=== PATIENT | male | born 1995 | race African-American/Black ===

== ENCOUNTER 2018-11-22 10:42 | Emergency (ER) | payer OTHER ==
[~2018-11-22] VITALS: Ht 180.3 cm; Wt 59.0 kg
[2018-11-22 10:50] VITALS: BP 140/63
[2018-11-22] MEDS ORDERED: CEFTRIAXONE 500 MG VIAL ONE (11:15)
[2018-11-22] MEDS ORDERED: LIDOCAINE /MPF 1% VIAL 5 ML VIAL ONE (11:16)
[2018-11-22] MEDS ORDERED: AZITHROMYCIN 250 MG TABLET ONE (11:16)
[2018-11-22] MEDS ORDERED: CEFTRIAXONE 1 G VIAL IM ONE (11:30)
[2018-11-22] MEDS ORDERED: AZITHROMYCIN 250 MG TABLET PO ONE (11:30)
--- NOTE | 2018-11-22 11:35 | NUR ---
Patient discharged to home in stable condition. Written and verbal after care instructions given. Patient verbalizes understanding of instruction.
== END 2018-11-22 11:39 | disposition home or self-care (01) ==
LOC: ER 10:44
DX: N34.2 Other urethritis (principal)
CPT/HCPCS: 87491; 87591; 96372; 99283; A4606; J0696; J3490; Z7610

== ENCOUNTER 2019-12-29 16:18 | Emergency (ER) | payer OTHER ==
[~2019-12-29] VITALS: Ht 180.3 cm; Wt 61.7 kg
[2019-12-29 16:27] VITALS: BP 120/97
== END 2019-12-29 17:04 | disposition home or self-care (01) ==
LOC: ER 16:18
DX: R50.9 Fever, unspecified (principal); R05 Cough; M79.10 Myalgia, unspecified site; F17.200 Nicotine dependence, unspecified, uncomplicated

== ENCOUNTER 2020-07-07 13:44 | Emergency (ER) | payer OTHER ==
[~2020-07-07] VITALS: Ht 180.3 cm; Wt 61.2 kg
[2020-07-07 13:54] VITALS: BP 130/73
[2020-07-07] MEDS ORDERED: oxyCODONE/APAP (5/325 MG) 1 UDTAB TABLET ONE (14:36)
[2020-07-07] MEDS ORDERED: IBUPROFEN 600 MG TABLET PO ONE (14:36)
[2020-07-07] MEDS: IBUPROFEN 600 MG TABLET PO ONE (14:49)
[2020-07-07] MEDS: oxyCODONE/APAP (5/325 MG) 1 UDTAB TABLET PO ONE (14:50)
== END 2020-07-07 15:16 | disposition home or self-care (01) ==
LOC: ER 13:47
DX: S93.501A Unspecified sprain of right great toe, initial encounter (principal); X58.XXXA Exposure to other specified factors, initial encounter; Y93.89 Activity, other specified; Y92.89 Other specified places as the place of occurrence of the external cause; Y99.0 Civilian activity done for income or pay
CPT/HCPCS: 73660-TC

== ENCOUNTER 2020-12-23 02:11 | Emergency (ER) | payer OTHER ==
[~2020-12-23] VITALS: Ht 180.3 cm; Wt 61.2 kg
[2020-12-23 02:35] VITALS: BP 155/77
[2020-12-23] MEDS ORDERED: DOXY100C2 PO (02:52)
[2020-12-23] MEDS ORDERED: CEFTRIAXONE 500 MG VIAL IM ONE (03:00)
[2020-12-23] MEDS ORDERED: DOXYCYCLINE HYCLATE (100 MG) 100 MG TABLET PO ONE (03:00)
[2020-12-23] MEDS ORDERED: CEFTRIAXONE 500 MG VIAL ONE (03:15)
[2020-12-23] MEDS ORDERED: DOXYCYCLINE HYCLATE (100 MG) 100 MG TABLET ONE (03:15)
== END 2020-12-23 04:07 | disposition home or self-care (01) ==
LOC: ER 02:14
DX: N34.2 Other urethritis (principal); F17.200 Nicotine dependence, unspecified, uncomplicated; Z79.899 Other long term (current) drug therapy
CPT/HCPCS: 96372; 99283; J0696

== ENCOUNTER 2022-04-30 11:49 | Emergency (ER) | payer MEDICAID, OTHER ==
[~2022-04-30] VITALS: Ht 180.3 cm; Wt 65.8 kg
[~2022-04-30 11:49] MED LIST: DOXY100C2 PO
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
[2022-04-30] MEDS ORDERED: DOXY100C2 PO (13:15)
[2022-04-30] MEDS ORDERED: CEFTRIAXONE 1 G VIAL ONE (13:23)
[2022-04-30] MEDS ORDERED: LIDOCAINE 1% INJ 50 ML MDV IJ ONE (13:24)
--- NOTE | 2022-04-30 13:30 | NUR ---
ROCEPHIN IM GIVEN.
[2022-04-30] MEDS: CEFTRIAXONE 1 G VIAL IM ONE (13:33)
[2022-04-30 13:39] VITALS: BP 120/70
--- NOTE | 2022-04-30 13:40 | NUR ---
Patient discharged to home in stable condition. Written and verbal after care instructions given about STD. Informed patient to inform partner about possible STD exposure. Patient verbalizes understanding of instruction.
== END 2022-04-30 13:41 | disposition home or self-care (01) ==
LOC: ER 11:53
DX: A64 Unspecified sexually transmitted disease (principal); N34.2 Other urethritis; F17.200 Nicotine dependence, unspecified, uncomplicated; Z79.899 Other long term (current) drug therapy
CPT/HCPCS: 36415; 86592; 86593; 87491; 87591; 87806; 96372; 99283; J0696; J3490

== ENCOUNTER 2022-10-11 20:51 | Emergency (ER) | payer OTHER ==
[~2022-10-11] VITALS: Ht 180.3 cm; Wt 66.7 kg
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
--- NOTE | 2022-10-11 21:43 | NUR ---
PT REFUSED [employer] SERVICE
[2022-10-11] MEDS ORDERED: TDAP [DIPH/PERTUSSIS/TET] 0.5 ML VIAL IM ONE ×2 (21:48→22:00)
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
[2022-10-11] MEDS ORDERED: LIDOCAINE 1%-EPI 1:100,000 20 ML VIAL ONE (22:39)
[2022-10-11 22:54] VITALS: BP 145/98
--- NOTE | 2022-10-11 22:54 | NUR ---
Patient discharged to home in stable condition. Written and verbal after care instructions given. Patient verbalizes understanding of instruction.
== END 2022-10-11 22:55 | disposition home or self-care (01) ==
LOC: ER 21:01
DX: S01.81XA Laceration without foreign body of other part of head, initial encounter (principal); F17.200 Nicotine dependence, unspecified, uncomplicated; Z79.899 Other long term (current) drug therapy; Y04.2XXA Assault by strike against or bumped into by another person, initial encounter; Y93.89 Activity, other specified; Y92.89 Other specified places as the place of occurrence of the external cause; Y99.8 Other external cause status
CPT/HCPCS: 99284; 70450; 12011; 90471; 90715; 70486; J3490